=== PATIENT | female | born 1990 | race African-American/Black ===

== ENCOUNTER 2018-03-26 02:52 | Emergency (ER) | payer MEDICAID | END 2018-03-26 03:34 | disposition left against medical advice (07) | LOC: ERS 02:52 | DX: Z53.21 Procedure and treatment not carried out due to patient leaving prior to being seen by health care provider (principal) ==

== ENCOUNTER 2018-10-05 18:02 | Emergency (ER) | payer MEDICAID, SELFPAY ==
[2018-10-05] MEDS ORDERED: Ketorolac Tromethamine 30 MG/ML VIAL ONE (19:58)
[2018-10-05] MEDS ORDERED: diphenhydrAMINE 50 MG/ML VIAL ONE (19:58)
[2018-10-05] MEDS ORDERED: Metoclopramide HCl 10 MG/2 ML VIAL ONE (19:58)
[2018-10-05] MEDS ORDERED: Dexamethasone 10 MG/ML VIAL ONE (19:59)
[2018-10-05] MEDS ORDERED: Ondansetron PF 4 MG/2 ML Vial ONE (20:08)
== END 2018-10-05 22:25 | disposition home or self-care (01) ==
LOC: ERS 18:02
DX: R51 Headache (principal)
CPT/HCPCS: 96365; 96366; 96375; J1100; J1200; J1885; J2405; J2765

== ENCOUNTER 2019-05-21 13:46 | Emergency (ER) | payer SELFPAY ==
[2019-05-21 14:30] LABS: Hemoglobin 14.9 g/dL (12.0-16.0); Mean Corpuscular HGB CONC 32.2 g/dL (32.0-36.0); Mean Corpuscular Volume 93.1 fL (78.0-98.0); Mean Platelet Volume 6.5 fL (7.4-10.4); Platelet Count 268 thou/uL (130-400); RBC Distribution Width 11.5 % (11.5-14.5); Red Blood Cell (RBC) Count 4.97 mill/uL (4.20-5.40); White Blood Cell (WBC) Count 8.5 thou/uL (4.8-10.8)
[2019-05-21 14:45] LABS: Acetaminophen Less than 6.0 mcg/mL (10.0-30.0); Alcohol Less than 10 mg/dL (Less than 10); Salicylate Less than 8.0 mg/dL (15.0-30.0)
[2019-05-21 14:46] LABS: ALT (SGPT) 8 U/L (8-55); AST (SGOT) 13 U/L (5-34); Albumin 4.2 g/dL (3.5-5.0); Alkaline Phosphatase 49 U/L (40-110); Anion Gap 10 mmol/L (10-20); BUN (Urea Nitrogen) 8 mg/dL (7.0-18.7); Bilirubin, Total 1.2 mg/dL (0.2-1.2); CK (CPK) 114 U/L (29-168); Calc. Creatinine Clearance 0 mL/min (70-130); Carbon Dioxide 25 mmol/L (22-29); Chloride 108 mmol/L (98-107); Estimated GFR-MDRD 83; Globulin 2.7 g/dL (2.4-3.5); Glucose 86 mg/dL (70-105); Potassium 3.9 mmol/L (3.5-5.1); Protein, Total 6.9 g/dL (6.0-8.3); Sodium 139 mmol/L (136-145)
[2019-05-21 14:50] LABS: Bilirubin Negative (Negative); Blood, Urine Negative (Negative); Clarity Clear (Clear); Glucose, Urine (Dipstick) Normal (Negative); Leukocyte Negative Leu/uL (Negative); Nitrite Negative (Negative); Protein, Urine (Dipstick) Negative (Neg-Trace); Urobilinogen Normal mg/dL (Less than 2)
[2019-05-21 14:50] LABS: Eosinophils 2 % (0-10); Lymphocytes 16 % (21-51); MDiff Complete? YES; Monocytes 2 % (0-10); Neutrophil 56 % (42-75); Platelet Morphology Comment Appears Adequate; Polychromasia SLIGHT = 2-3 cells (100X) (0-2/hpf); Reactive Lymphocytes 24 % (0-10)
[2019-05-21 14:53] LABS: Pregnancy Test - Urine (BHCG) Negative (Negative); Pregu Control Background? CLEAR/WHITE (CLR/WHITE); Pregu Control Bar Appear? YES (CONTROL BAR); Specific Gravity 1.007 (1.002-1.036)
[2019-05-21 15:03] LABS: Amphetamine Not Detected (NotDetected); Barbiturates Screen Not Detected (NotDetected); Benzodiazepine Screen Not Detected (NotDetected); Cocaine Metabolite Screen Not Detected (NotDetected); Medtox Control Line Valid? VALID (VALID); Medtox Reader # READER 4; Methadone Not Detected (NotDetected); Methamphetamine Not Detected (NotDetected); Opiate Screen Not Detected (NotDetected); Oxycodone Screen Not Detected (NotDetected); Phencyclidine (PCP) Not Detected (NotDetected); THC/Cannabinoid Screen Detected (NotDetected); Tricyclic Screen Not Detected (NotDetected)
[2019-05-21] MEDS ORDERED: Ondansetron ODT 4 MG TAB ONE (17:13)
[2019-05-21] MEDS ORDERED: Famotidine 20 MG TAB ONE (17:13)
== END 2019-05-22 05:51 | disposition home or self-care (01) ==
LOC: ERS 13:46
DX: T43.211A Poisoning by selective serotonin and norepinephrine reuptake inhibitors, accidental (unintentional), initial encounter (principal); G43.909 Migraine, unspecified, not intractable, without status migrainosus; F41.9 Anxiety disorder, unspecified; F32.9 Major depressive disorder, single episode, unspecified; Z79.899 Other long term (current) drug therapy
CPT/HCPCS: 36415; 80053; 80306; 80307; 81003; 81025; 82550; 83735; 84443; 85025; 93005; 96360; Q0162

== ENCOUNTER 2019-08-05 17:24 | Emergency (ER) | payer SELFPAY, OTHER ==
[2019-08-05] MEDS ORDERED: Ondansetron ODT 4 MG TAB ONE (17:39)
== END 2019-08-05 18:34 | disposition home or self-care (01) ==
LOC: ERS 17:24
DX: R11.2 Nausea with vomiting, unspecified (principal); F32.9 Major depressive disorder, single episode, unspecified; F41.9 Anxiety disorder, unspecified; Z79.899 Other long term (current) drug therapy
CPT/HCPCS: 87804; 99284; Q0162

== ENCOUNTER 2022-12-31 13:21 | Emergency (ER) | payer SELFPAY | END 2022-12-31 14:00 | disposition home or self-care (01) | LOC: ERS 13:21 | DX: K03.81 Cracked tooth (principal); K04.7 Periapical abscess without sinus | CPT/HCPCS: 99283 ==